=== PATIENT | male | born 1980 | race Caucasian/White ===

== ENCOUNTER 2024-04-04 07:48 | Outpatient (CLI) | payer BC, SELFPAY ==
--- NOTE | 2024-04-04 09:42 | W.ANESCHARGE ---
Anesthesia Charges Start Date/Time Anesthesia Start Date: 04/04/24 Anesthesia Start Time: 09:04 Stop Date/Time Anesthesia Stop Date: 04/04/24 Anesthesia Stop Time: 09:40
== END 2024-04-04 07:49 | disposition home or self-care (01) ==
PROVIDERS: PCP Family Medicine; Visit Provider Surgery
DX: K62.5 Hemorrhage of anus and rectum (principal); D12.0 Benign neoplasm of cecum; D12.3 Benign neoplasm of transverse colon; D12.5 Benign neoplasm of sigmoid colon; D64.9 Anemia, unspecified
CPT/HCPCS: 00811; 45385; 88305; J2704